=== PATIENT | female | born 1985 | race Caucasian/White ===

== ENCOUNTER 2021-01-28 09:57 | Emergency (ER) | payer OTHER ==
[2021-01-28 10:15] VITALS: BP 139/82; PULSE 65; TEMP 98.5; BMI 25.7
== END 2021-01-28 10:46 | disposition home or self-care (01) ==
LOC: JERFT 09:57 → JER 09:57 → JERFT 10:46
DX: S93.402S Sprain of unspecified ligament of left ankle, sequela (principal)
CPT/HCPCS: 73610-TC-LT-FY; 73630-TC-LT; 99284-25